=== PATIENT | male | born 1985 | race Caucasian/White ===

== ENCOUNTER 2017-10-07 01:33 | Inpatient (IN) | payer SELFPAY ==
[2017-10-07] MEDS ORDERED: Succinylcholine Chloride 20 MG/ML 10 ml SYRINGE FS ONE (01:45)
[2017-10-07 02:09] LABS: #Basophils 0.1 thou/uL (0.0-0.2); #Eosinphils 0.1 thou/uL (0.0-0.7); #Lymphocytes 1.5 thou/uL (1.20-3.40); #Monocytes 0.3 thou/uL (0.11-0.59); #Neutrophils 3.6 thou/uL (1.40-6.50); %Eosinophils 1.4 % (0.0-10.0); %Lymphocytes 27.3 % (21.0-51.0); %Monocytes 6.1 % (0.0-10.0); %Neutrophils 64.1 % (42.0-75.0); Hemoglobin 16.1 g/dL (14.0-18.0); Mean Corpuscular HGB CONC 34.1 g/dL (32.0-36.0); Mean Corpuscular Hemoglobin 31.2 pg (27.0-31.0); Mean Corpuscular Volume 91.4 fl (80.0-94.0); Mean Platelet Volume 7.2 fL (7.4-10.4); Platelet Count 225 thou/uL (130-400); RBC Distribution Width 11.1 % (11.5-14.5); Red Blood Cell (RBC) Count 5.17 mill/uL (4.70-6.10); White Blood Cell (WBC) Count 5.6 thou/uL (4.8-10.8)
[2017-10-07] MEDS ORDERED: Midazolam HCl 5 mg/ml Vial ONE (02:11)
[2017-10-07 02:18] LABS: Prothrombin Time 13.6 SEC (12.0-14.7)
[2017-10-07] MEDS ORDERED: fentaNYL Citrate/PF 2,000 MCG in Sodium Chloride 0.9% 60 ML IV SCH (02:22)
[2017-10-07 02:38] LABS: ALT (SGPT) 10 U/L (8-55); AST (SGOT) 21 U/L (5-34); Albumin 4.8 g/dL (3.5-5.0); Alcohol 181 mg/dL (Less than 10); Alkaline Phosphatase 77 U/L (40-150); Anion Gap 19 mmol/L (10-20); BUN (Urea Nitrogen) 10 mg/dL (8.9-20.6); Bilirubin, Total 0.4 mg/dL (0.2-1.2); Calc. Creatinine Clearance 0 mL/min (70-130); Calcium 9.4 mg/dL (7.8-10.44); Carbon Dioxide 21 mmol/L (22-29); Chloride 104 mmol/L (98-107); Estimated GFR-MDRD Greater than 90; Globulin 2.9 g/dL (2.4-3.5); Glucose 103 mg/dL (70-105); Lipase 15 U/L (8-78); Potassium 3.4 mmol/L (3.5-5.1); Protein, Total 7.7 g/dL (6.0-8.3); Sodium 141 mmol/L (136-145)
[2017-10-07 02:52] LABS: CO2 Tension 43.6 mmHg (35.0-45.0); pH, Arterial 7.32 (7.35-7.45)
[2017-10-07 02:53] LABS: Hematocrit-ABG 38.9 % (42.0-52.0); Hemoglobin (Hb) 13.9 g/dL (14.0-18.0)
[2017-10-07 02:54] LABS: Analyzer IN Cardio ER; Calcium, Ionized 1.1 mmol/L (1.12-1.30); Puncture Site LRA
[2017-10-07 03:42] LABS: Medtox Reader # READER 1
[2017-10-07 03:43] LABS: Amphetamine Not Detected (NotDetected); Barbiturates Screen Not Detected (NotDetected); Benzodiazepine Screen Not Detected (NotDetected); Cocaine Metabolite Screen Not Detected (NotDetected); Medtox Control Line Valid? VALID (VALID); Methadone Not Detected (NotDetected); Methamphetamine Not Detected (NotDetected); Opiate Screen Not Detected (NotDetected); Oxycodone Screen Not Detected (NotDetected); Phencyclidine (PCP) Not Detected (NotDetected); THC/Cannabinoid Screen Detected (NotDetected); Tricyclic Screen Not Detected (NotDetected)
[2017-10-07] MEDS ORDERED: Acetaminophen 500 MG TAB PO PRN (05:00)
[2017-10-07] MEDS ORDERED: Ibuprofen 800 MG TAB PO PRN (05:00)
[2017-10-07] MEDS ORDERED: Ondansetron HCl/PF 4 MG/2 ML Vial IVP PRN (05:28)
[2017-10-07] MEDS ORDERED: Dextrose 50% Abboject 50 ML SYRINGE SLOW IVP PRN (05:28)
[2017-10-07] MEDS ORDERED: Ondansetron ODT 4 MG TAB PO PRN (05:28)
[2017-10-07] MEDS ORDERED: Dextrose 5% in Water 1,000 ML IV PRN (05:28)
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
[2017-10-07] MEDS: Sodium Chloride 0.9% 1,000 ML IV SCH ×2 (05:59→15:35)
[2017-10-07] MEDS ORDERED: Potassium Chloride 20 MEQ/100 ML PREMIX BAG IVPB SCH (06:00)
[2017-10-07 06:39] VITALS: BMI 20.5
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
[2017-10-07] MEDS ORDERED: traMADol HCl 50 MG TAB PO PRN ×2 (08:46)
[2017-10-07] MEDS: Acetaminophen 500 MG TAB PO SCH ×3 (08:53→21:05)
[2017-10-07] MEDS: Senokot S 8.6-50 MG TAB PO SCH ×2 (08:54→21:05)
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
[2017-10-07] MEDS ORDERED: Scopolamine 1.5 mg/72 hour Patch TD SCH (09:00)
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
[2017-10-07] MEDS ORDERED: ISOVUE-370 76%-LOCM 1 ML ONE (16:27)
[2017-10-07 23:07] VITALS: BP 110/64; TEMP 98.5
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
== END 2017-10-07 23:00 | disposition home or self-care (01) | DRG 90 ==
LOC: ERS 01:33 → SURG A 05:17
PROVIDERS: ADMIT Specialist; ATTEND Specialist
PROC: 0BH17EZ Insertion of Endotracheal Airway into Trachea, Via Natural or Artificial Opening (ICD-10-PCS; principal; 2017-10-07)
PROC: 5A1935Z Respiratory Ventilation, Less than 24 Consecutive Hours (ICD-10-PCS; 2017-10-07)
DX: S06.0X9A Concussion with loss of consciousness of unspecified duration, initial encounter (principal); F10.129 Alcohol abuse with intoxication, unspecified; Y90.6 Blood alcohol level of 120-199 mg/100 ml; Y04.2XXA Assault by strike against or bumped into by another person, initial encounter; S00.412A Abrasion of left ear, initial encounter; S20.312A Abrasion of left front wall of thorax, initial encounter; S00.81XA Abrasion of other part of head, initial encounter; S70.311A Abrasion, right thigh, initial encounter; F12.10 Cannabis abuse, uncomplicated; S02.2XXA Fracture of nasal bones, initial encounter for closed fracture; R06.89 Other abnormalities of breathing
CPT/HCPCS: 31500; 51702; 70450; 70486; 71045; 71260; 72125; 74177; 80053; 80306; 80307; 82805; 83690; 85025; 85610; 85730; 94002; 96361; 96365; 96366; 96375; G0390; G8978-GP-CJ; G8979-GP-CJ; G8980-GP-CJ; J2250; J2405; J3010; J3480; J7050

== ENCOUNTER 2017-11-24 02:26 | Inpatient (IN) | payer SELFPAY ==
[2017-11-24] MEDS ORDERED: Propofol 1,000 MG/100 ML VIAL IV ONE (02:38)
[2017-11-24 02:53] LABS: #Basophils 0.1 thou/uL (0.0-0.2); #Eosinphils 0.1 thou/uL (0.0-0.7); #Lymphocytes 2.8 thou/uL (1.20-3.40); #Monocytes 0.5 thou/uL (0.11-0.59); #Neutrophils 3.7 thou/uL (1.40-6.50); %Basophils 0.8 % (0.0-1.0); %Eosinophils 1.6 % (0.0-10.0); %Lymphocytes 39.5 % (21.0-51.0); %Monocytes 6.6 % (0.0-10.0); %Neutrophils 51.4 % (42.0-75.0); Hemoglobin 16.5 g/dL (14.0-18.0); Mean Corpuscular HGB CONC 35.4 g/dL (32.0-36.0); Mean Corpuscular Hemoglobin 31.9 pg (27.0-31.0); Mean Corpuscular Volume 90.2 fl (80.0-94.0); Mean Platelet Volume 6.9 fL (7.4-10.4); Platelet Count 252 thou/uL (130-400); RBC Distribution Width 11.6 % (11.5-14.5); Red Blood Cell (RBC) Count 5.17 mill/uL (4.70-6.10); White Blood Cell (WBC) Count 7.2 thou/uL (4.8-10.8)
[2017-11-24 03:07] LABS: ALT (SGPT) 10 U/L (8-55); AST (SGOT) 16 U/L (5-34); Albumin 4.8 g/dL (3.5-5.0); Alkaline Phosphatase 80 U/L (40-150); Anion Gap 21 mmol/L (10-20); BUN (Urea Nitrogen) 8 mg/dL (8.9-20.6); Bilirubin, Total 0.4 mg/dL (0.2-1.2); Calc. Creatinine Clearance 0 mL/min (70-130); Calcium 9.1 mg/dL (7.8-10.44); Carbon Dioxide 19 mmol/L (22-29); Chloride 105 mmol/L (98-107); Estimated GFR-MDRD Greater than 90; Glucose 108 mg/dL (70-105); Potassium 3.7 mmol/L (3.5-5.1); Protein, Total 7.8 g/dL (6.0-8.3); Sodium 141 mmol/L (136-145)
[2017-11-24 03:16] LABS: Base Excess (BEa) -7.2 mEq/L (0 (+/-) 2.5); CO2 Tension 40.8 mmHg (35.0-45.0); Hematocrit-ABG 45.3 % (42.0-52.0); Hemoglobin (Hb) 15.9 g/dL (14.0-18.0); O2 Tension (PaO2) 121.2 mmHg (80.0-100.0); pH, Arterial 7.29 (7.35-7.45)
[2017-11-24 03:17] LABS: Analyzer IN Cardio ER; Calcium, Ionized 1.2 mmol/L (1.12-1.30); Puncture Site RRA
[2017-11-24 03:40] LABS: Acetaminophen Less than 6.0 mcg/mL (10.0-30.0); Alcohol 167 mg/dL (Less than 10); Salicylate Less than 8.0 mg/dL (15.0-30.0)
[2017-11-24 03:45] LABS: Amphetamine Not Detected (NotDetected); Barbiturates Screen Not Detected (NotDetected); Benzodiazepine Screen Not Detected (NotDetected); Cocaine Metabolite Screen Not Detected (NotDetected); Medtox Control Line Valid? VALID (VALID); Medtox Reader # READER 1; Methadone Not Detected (NotDetected); Methamphetamine Not Detected (NotDetected); Opiate Screen Not Detected (NotDetected); Oxycodone Screen Not Detected (NotDetected); Phencyclidine (PCP) Not Detected (NotDetected); THC/Cannabinoid Screen Detected (NotDetected); Tricyclic Screen Not Detected (NotDetected)
[2017-11-24] MEDS ORDERED: fentaNYL Citrate/PF 2,000 MCG in Sodium Chloride 0.9% 60 ML IV SCH ×2 (03:48→05:29)
[2017-11-24] MEDS ORDERED: Lorazepam 2 MG/ML VIAL ONE (03:54)
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
[2017-11-24] MEDS ORDERED: Ventilator Sedation Protocol 1 EACH FS SCH (05:15)
[2017-11-24 05:20] VITALS: BMI 19.7
[2017-11-24] MEDS ORDERED: Propofol 1,000 MG/100 ML VIAL IV PRN (05:29)
[2017-11-24] MEDS ORDERED: Morphine 4 MG/ML VIAL SLOW IVP PRN (05:29)
[2017-11-24] MEDS ORDERED: Propofol BOLUS 1,000 MG/100 ML VIAL IV PRN (05:29)
[2017-11-24] MEDS ORDERED: Lorazepam 2 MG/ML VIAL SLOW IVP PRN (05:29)
[2017-11-24] MEDS: Sodium Chloride 0.9% 1,000 ML IV SCH ×2 (06:28→14:12)
[2017-11-24 07:02] LABS: Actual Bicarbonate (HCO3a) 22.9 mEq/L (22-26); Base Excess (BEa) -4.2 mEq/L (0 (+/-) 2.5); CO2 Tension 49.5 mmHg (35.0-45.0); Hematocrit-ABG 42.9 % (42.0-52.0); Hemoglobin (Hb) 14.8 g/dL (14.0-18.0); O2 Tension (PaO2) 105.8 mmHg (80.0-100.0); pH, Arterial 7.28 (7.35-7.45)
[2017-11-24 07:03] LABS: ALV-art Gradient 115.525 (0-20); Calcium, Ionized 1.2 mmol/L (1.12-1.30); Puncture Site RR
[2017-11-24 07:30] VITALS: BP 95/43
--- NOTE | 2017-11-24 08:41 | RAD ---
CHEST ONE VIEW: History: Altered mental status. Comparison: 10-07-17 FINDINGS: Patient is intubated with endotracheal tube tip at the level of the clavicles in good position. Enter ic tube tip is in the gastric body. NO focal airspace consolidation, pneumothorax, or effusion. There is consolidation/atelectasis in the left lung base. IMPRESSION: 1. Left lung base airspace consolidation or atelectasis. Follow up recommended. 2. Adequate location of the endotracheal and enteric tubes. POS: [facility]
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
[2017-11-24] MEDS ORDERED: Ondansetron HCl/PF 4 MG/2 ML Vial SLOW IVP PRN (11:41)
[2017-11-24 12:29] VITALS: TEMP 99.5
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
== END 2017-11-24 16:54 | DRG 208 ==
LOC: ERS 02:26 → CCU 03:55
PROVIDERS: ADMIT Family Medicine; ATTEND Family Medicine
PROC: 5A1935Z Respiratory Ventilation, Less than 24 Consecutive Hours (ICD-10-PCS; principal; 2017-11-24)
PROC: 0BH17EZ Insertion of Endotracheal Airway into Trachea, Via Natural or Artificial Opening (ICD-10-PCS; 2017-11-24)
DX: J96.01 Acute respiratory failure with hypoxia (principal); F10.129 Alcohol abuse with intoxication, unspecified; F12.10 Cannabis abuse, uncomplicated; Y90.6 Blood alcohol level of 120-199 mg/100 ml
CPT/HCPCS: 70450; 71045; 72125; 80053; 80306; 80307; 82550; 82805; 85025; 93005; 94002; 94760; A4216; J2060; J2704; J3010; J7050

== ENCOUNTER 2018-02-20 18:05 | Emergency (ER) | payer SELFPAY ==
--- NOTE | 2018-02-20 19:13 | RAD ---
RIGHT SHOULDER THREE VIEWS: 02/20/18 HISTORY: Shoulder injury. There is no signs of fracture or dislocation. IMPRESSION: Negative right shoulder. POS: [facility]
--- NOTE | 2018-02-20 19:18 | RAD ---
RIGHT RIBS THREE VIEWS: 02/20/18 HISTORY: Rib injury. There is no signs of a pneumothorax. No rib fractures are identified. IMPRESSION: Negative right ribs. POS: [facility]
[2018-02-20] MEDS ORDERED: HYDROcodone/Acetaminophen 10/325 mg Tablet ONE (19:22)
--- NOTE | 2018-02-20 19:22 | RAD ---
LEFT RIBS FOUR VIEWS: 02/20/18 HISTORY: Rib injury. There is no signs of pneumothorax. No rib fractures are identified. IMPRESSION: Negative left ribs. POS: [facility]
--- NOTE | 2018-02-20 19:34 | CT ---
CT OF THE CERVICAL SPINE PERFORMED WITHOUT CONTRAST ENHANCEMENT: 02/20/18 COMPARISON: 11/24/17 study. HISTORY: Right sided neck pain status post injury. The vertebral bodies are normal in height. Disc space all appear fairly well preserved. The facets ar e in normal alignment. There is no evidence of canal or foraminal stenosis. There is no CT evidence f or fracture. IMPRESSION: No CT evidence of fracture of the cervical spine. POS: [facility]
== END 2018-02-20 19:29 | disposition home or self-care (01) ==
LOC: ERS 18:05
DX: S13.4XXA Sprain of ligaments of cervical spine, initial encounter (principal); S43.401A Unspecified sprain of right shoulder joint, initial encounter; S20.212A Contusion of left front wall of thorax, initial encounter; S20.211A Contusion of right front wall of thorax, initial encounter; Z71.6 Tobacco abuse counseling; F41.9 Anxiety disorder, unspecified; F31.9 Bipolar disorder, unspecified; F17.210 Nicotine dependence, cigarettes, uncomplicated; W20.8XXA Other cause of strike by thrown, projected or falling object, initial encounter
CPT/HCPCS: 72125; 99406

== ENCOUNTER 2018-03-02 20:12 | Emergency (ER) | payer SELFPAY ==
[2018-03-02 20:59] LABS: #Eosinphils 0.1 thou/uL (0.0-0.7); #Lymphocytes 1.6 thou/uL (1.20-3.40); #Monocytes 0.4 thou/uL (0.11-0.59); #Neutrophils 3.3 thou/uL (1.40-6.50); %Basophils 0.5 % (0.0-1.0); %Eosinophils 1.7 % (0.0-10.0); %Lymphocytes 29.3 % (21.0-51.0); %Monocytes 6.7 % (0.0-10.0); %Neutrophils 61.7 % (42.0-75.0); Hemoglobin 16.7 g/dL (14.0-18.0); Mean Corpuscular HGB CONC 35.2 g/dL (32.0-36.0); Mean Corpuscular Hemoglobin 31.9 pg (27.0-31.0); Mean Corpuscular Volume 90.7 fL (78.0-98.0); Mean Platelet Volume 6.4 fL (7.4-10.4); Platelet Count 242 thou/uL (130-400); RBC Distribution Width 11.1 % (11.5-14.5); Red Blood Cell (RBC) Count 5.23 mill/uL (4.70-6.10); White Blood Cell (WBC) Count 5.4 thou/uL (4.8-10.8)
[2018-03-02 21:19] LABS: ALT (SGPT) 9 U/L (8-55); AST (SGOT) 14 U/L (5-34); Acetaminophen Less than 6.0 mcg/mL (10.0-30.0); Albumin 4.7 g/dL (3.5-5.0); Alcohol 84 mg/dL (Less than 10); Alkaline Phosphatase 126 U/L (40-150); Anion Gap 15 mmol/L (10-20); BUN (Urea Nitrogen) 10 mg/dL (8.9-20.6); Bilirubin, Total 0.8 mg/dL (0.2-1.2); Calc. Creatinine Clearance 0 mL/min (70-130); Calcium 9.7 mg/dL (7.8-10.44); Carbon Dioxide 21 mmol/L (22-29); Chloride 106 mmol/L (98-107); Estimated GFR-MDRD Greater than 90; Globulin 3.2 g/dL (2.4-3.5); Glucose 81 mg/dL (70-105); Potassium 4.2 mmol/L (3.5-5.1); Protein, Total 7.9 g/dL (6.0-8.3); Salicylate Less than 8.0 mg/dL (15.0-30.0); Sodium 138 mmol/L (136-145)
[2018-03-02 21:51] LABS: Bilirubin Negative (Negative); Blood, Urine Negative (Negative); Clarity CLEAR (Clear); Glucose, Urine (Dipstick) Negative (Negative); Leukocyte Negative (Negative); Nitrite Negative (Negative); Protein, Urine (Dipstick) Negative (Neg-Trace); Specific Gravity, Urine 1.015 (1.002-1.036); Urobilinogen 0.2 mg/dL (0.2-1.0); pH, Urine 5.5 (5.0-9.0)
[2018-03-02 22:06] LABS: Amphetamine Not Detected (NotDetected); Barbiturates Screen Not Detected (NotDetected); Benzodiazepine Screen Not Detected (NotDetected); Cocaine Metabolite Screen Not Detected (NotDetected); Medtox Control Line Valid? VALID (VALID); Medtox Reader # READER 1; Methadone Not Detected (NotDetected); Methamphetamine Not Detected (NotDetected); Opiate Screen Not Detected (NotDetected); Oxycodone Screen Not Detected (NotDetected); Phencyclidine (PCP) Not Detected (NotDetected); THC/Cannabinoid Screen Detected (NotDetected); Tricyclic Screen Not Detected (NotDetected)
[2018-03-02] MEDS ORDERED: Nicotine 21 MG PATCH TOP SCH (23:30)
== END 2018-03-03 14:12 | disposition home or self-care (01) ==
LOC: ERS 20:12
DX: R45.851 Suicidal ideations (principal); F31.9 Bipolar disorder, unspecified; F17.210 Nicotine dependence, cigarettes, uncomplicated
CPT/HCPCS: 36415; 80053; 80306; 80307; 81003; 85025; 99285

== ENCOUNTER 2018-05-03 22:46 | Emergency (ER) | payer OTHER, SELFPAY ==
--- NOTE | 2018-05-04 00:01 | CT ---
CT BRAIN WITHOUT CONTRAST: HISTORY: Trauma without loss of consciousness. Headache. FINDINGS: No evidence of infarct, hemorrhage, midline shift, or abnormal extraaxial fluid collections is seen. The ventricular size is normal, and the basilar cisterns are patent. The bony calvarium is intact. The visualized paranasal sinuses and mastoid air cells are well aerated. IMPRESSION: 1. Fractures of the zygomatic arches are present. The one on the right was noted on 03/14/2018. 2. No CT evidence of acute intracranial process. There is soft tissue swelling in the right periorb ital region. POS: [facility]
--- NOTE | 2018-05-04 00:15 | CT ---
CT CERVICAL SPINE WITH CORONAL AND SAGITTAL REFORMATIONS: HISTORY: Trauma. Neck pain. FINDINGS: No fracture or subluxation is seen. No facet malalignment is identified. POS: [facility]
--- NOTE | 2018-05-04 00:16 | RAD ---
LEFT FINGER THREE VIEWS: HISTORY: Trauma. Finger pain. FINDINGS: There is a minimally displaced oblique fracture involving the shaft of the middle phalanx. The possi bility of the fracture line extending into the proximal articular surface cannot be completely exclud ed. POS: [facility]
--- NOTE | 2018-05-04 00:19 | CT ---
CT FACIAL BONES WITH CORONAL AND SAGITTAL REFORMATIONS: HISTORY: Trauma. Facial pain. COMPARISON: 03/14/2018 FINDINGS: There are bilateral depressed zygomatic arch fractures. The one on the left is new. The right-sided fracture was noted on the previous exam. The fracture involving the lateral margin of the anterior wall of the right maxillary sinus and the lateral wall of the maxillary sinus and extending into the far anterolateral margin of the right orbital floor is again seen. No other new fractures are seen. No temporomandibular dislocation is identified. The visualized paranasal sinuses are well aerated. There is soft tissue swelling in the periorbital regions, greater on the right. IMPRESSION: Facial fractures, as above. POS: [facility]
[2018-05-04] MEDS ORDERED: HYDROcodone/Acetaminophen 5/325 mg Tablet ONE (00:33)
== END 2018-05-04 01:05 ==
LOC: SCSER 22:46
DX: S02.40FA Zygomatic fracture, left side, initial encounter for closed fracture (principal); S62.625A Displaced fracture of middle phalanx of left ring finger, initial encounter for closed fracture; F17.210 Nicotine dependence, cigarettes, uncomplicated; Y04.0XXA Assault by unarmed brawl or fight, initial encounter
CPT/HCPCS: 29130; 70450; 70486; 72125